=== PATIENT | female | born 1980 | race Caucasian/White ===

== ENCOUNTER → 2018-04-23 16:31 | Outpatient (CLI) | payer SELFPAY ==
[2018-04-28 14:20] LABS: HPV Reflexed? NOT INDICATED
== END ==
PROVIDERS: Visit Provider Obstetrics & Gynecology
DX: Z12.4 Encounter for screening for malignant neoplasm of cervix (principal)
CPT/HCPCS: 88175; G0145

== ENCOUNTER → 2018-05-01 08:55 | Outpatient (CLI) | payer SELFPAY ==
[2018-05-01 11:11] LABS: Hemoglobin A1c 5.3 % (4.2-6.3)
[2018-05-01 11:13] LABS: Free T3 2.7 pg/mL (2.18-3.98); T4 Free Direct 1.01 ng/dL (0.76-1.46); Thyroid Stim Hormone (TSH) 0.57 uIU/mL (0.358-3.74)
[2018-05-01 11:15] LABS: Progesterone Level 8.04 ng/mL (See Comment)
[2018-05-04 12:06] LABS: DHEA Sulfate 94.8 ug/dL (57.3-279.2)
[2018-05-05 11:09] LABS: T3 Reverse 19.7 ng/dL (9.2-24.1)
== END ==
PROVIDERS: Visit Provider Obstetrics & Gynecology
DX: N94.3 Premenstrual tension syndrome (principal)
CPT/HCPCS: 36415; 82533; 82627; 82670; 83036; 84144; 84403; 84439; 84443; 84481; 84482; 82626

== ENCOUNTER → 2018-05-28 08:48 | Outpatient (CLI) | payer SELFPAY ==
--- NOTE | 2018-05-28 08:54 | BI_ITS ---
MAMMOGRAPHY - BILATERAL SCREENING REASON FOR EXAM: Female, 37 years old. Routine annual screening examination. PERTINENT HISTORY: Non-contributory. TECHNIQUE: Digital bilateral breast raza (3D mammographic acquisition) in the CC and MLO projections. 2-D mediolateral oblique (MLO) and craniocaudad (CC) views of both breasts were obtained. CAD: Full Field Digital Mammography with Computer Added Detection was performed. COMPARISON: None. Baseline examination. FINDINGS: Breast Composition: There are scattered areas of fibroglandular density. There are no dominant masses or suspicious calcifications. No other significant abnormalities are identified. BI/SCREENING MAMM (CAD), BILAT IMPRESSION: Negative screening mammogram. Yearly followup mammogram recommended. (A) ASSESSMENT CATEGORY: BIRADS Category 1: Negative. A letter regarding these results will be sent to the patient by the facility within 30 days. Approximately 10% of breast cancers are not detected by mammography. A normal mammogram should not delay biopsy of a clinically suspicious abnormality. [id number] Electronically Signed: Asael Clarke, at 10:42 EDT , Service support ,
== END ==
PROVIDERS: Referring Provider Obstetrics & Gynecology; Visit Provider Obstetrics & Gynecology
DX: Z12.31 Encounter for screening mammogram for malignant neoplasm of breast (principal)
CPT/HCPCS: 77063; 77067